=== PATIENT | female | born 1950 | race Caucasian/White ===

== ENCOUNTER 2016-05-31 05:06 | Day surgery (SDC) | payer MEDICAID ==
[2016-05-31] MEDS ORDERED: LIDOCAINE 1% 2 ML INJ ONE (05:55)
[2016-05-31] MEDS ORDERED: ceFAZolin 2 GM/DEXTROSE 100 ML IV ONE (06:30)
[2016-05-31] MEDS ORDERED: MIDAZOLAM 2 MG/2 ML VIAL ONE (07:13)
[2016-05-31] MEDS ORDERED: fentaNYL 100 MCG/2 ML INJ ONE ×2 (07:23→08:29)
[2016-05-31] MEDS ORDERED: PROPOFOL 200 MG/20 ML VIAL ONE ×2 (07:23→08:06)
[2016-05-31] MEDS ORDERED: HYDROmorphONE/DILAUDID 2 MG/ML INJ ONE (07:47)
[2016-05-31] MEDS ORDERED: BUPIVACAINE 0.5% 30 ML SDV ONE (07:47)
[2016-05-31] MEDS ORDERED: LIDOCAINE 2% 5 ML SDV ONE (07:59)
[2016-05-31] MEDS ORDERED: DEXAMETHASONE 4 MG/ML VIAL ONE (07:59)
[2016-05-31] MEDS ORDERED: ROCURONIUM 50 MG/5 ML VIAL ONE (07:59)
[2016-05-31] MEDS ORDERED: SUGAMMADEX SODIUM 200 MG/2 ML VIAL IVP ONE (08:15)
[2016-05-31] MEDS ORDERED: ONDANSETRON 4 MG/2 ML VIAL ONE (08:15)
[2016-05-31] MEDS ORDERED: LABETALOL HCL 5 MG/ML 20 ML MDV ONE (08:34)
--- NOTE | 2016-05-31 08:41 | GOP ---
[f rep st] OPERATIVE REPORT DATE OF OPERATION: 05/31/2016 SURGEON: Ira Barriga MD VENUE COORDINATOR: GARY Jorge ANESTHESIA: General. ANESTHESIOLOGIST: Angel Navas MD PREOPERATIVE DIAGNOSIS: Chronic coccyx wound. POSTOPERATIVE DIAGNOSIS: Chronic coccyx wound. PROCEDURE PERFORMED: Debridement of skin and soft tissue, and complex closure of coccyx wound. FINDINGS: The wound measured 2.6 x 1.4 x 1.8 cm. SPECIMENS: None. INDICATIONS: The patient is a morbidly obese 66-year-old woman who underwent spinal surgery. She then presented with a large wound on her spine and she also developed a deep wound over her coccyx. I recommended numerous times for this to try to be closed, but she was unable to do this earlier. She now presents for closure because she needs hardware replaced in her left hip. DESCRIPTION OF PROCEDURE: The patient was brought into the operating room, placed supine on the table, and general anesthesia was administered. She was then placed in the prone position. Her bottom was prepped with Betadine and draped in the usual sterile fashion. I excised a rim of tissue around the wound. I then cleaned the base of the chronic wound with a scalpel. Hemostasis was achieved. The wound measured 2.6 x 1.4 x 1.8 cm. I created multilayers so that I could close the deeper tissues in 3 layers with 3-0 Vicryl. The tissues came together nicely. I then closed the skin with 2-0 nylon. Allevyn border was placed. She was placed back in the supine position, awakened in the operating room, extubated, transferred to PACU in stable condition. /[id number]/MODL MTDD
[2016-05-31] MEDS ORDERED: HYDROmorphONE/DILAUDID 1 MG/ML SYR ONE (08:43)
[2016-05-31] MEDS ORDERED: OXYCODONE/APAP 5/325 TAB ONE (09:10)
== END 2016-05-31 10:05 ==
LOC: FSGY 05:06
PROVIDERS: ATTEND Surgery
PROC: 0JQ70ZZ Repair Back Subcutaneous Tissue and Fascia, Open Approach (ICD-10-PCS; principal; 2016-05-31 07:15)
DX: L89.159 Pressure ulcer of sacral region, unspecified stage (principal); Z98.1 Arthrodesis status; E66.01 Morbid (severe) obesity due to excess calories
CPT/HCPCS: J0690; J1100; J1170; J2250; J2405; J2704; J3010; J3490

== ENCOUNTER 2016-12-03 06:17 | Inpatient (IN) | payer MEDICAID ==
[2016-12-03] MEDS ORDERED: ceFAZolin 3 GM in D5W 100 ML IV ONE (06:52)
[2016-12-03] MEDS ORDERED: BUPIVACAINE 0.5% 30 ML SDV ONE ×2 (07:08→07:53)
[2016-12-03] MEDS ORDERED: LR 1,000 ML IV ONE (07:21)
[2016-12-03] MEDS ORDERED: LIDOCAINE 1% 2 ML INJ ID PRN (07:21)
--- NOTE | 2016-12-03 07:29 | CPEKG ---
Heart Rate: 73 RR Interval: 822 P-R Interval: 172 QRSD Interval: 88 QT Interval: 396 QTC Interval: 437 P Azalea: 54 QRS Azalea: 24 T Wave Azalea: 25 EKG Severity - NORMAL ECG - EKG Impression: SINUS RHYTHM Electronically Signed By: Nat Gallegos 03-Dec-2016 16:31:54
[2016-12-03] MEDS ORDERED: LIDOCAINE 1% 300 MG/30 ML SDV ONE (07:52)
[2016-12-03] MEDS ORDERED: MIDAZOLAM 2 MG/2 ML VIAL IVP ONE (08:00)
--- NOTE | 2016-12-03 08:00 | PDHPUP ---
History & Physical Update H&P update statement: This history and physical update is based on an assessment of the patient which was completed after admission or registration (within 24 hours), but prior to the surgery/procedure. H&P update: H&P reviewed & patient examined, no change in patient's condition since H&P completed
--- NOTE | 2016-12-03 08:03 | PDANEPAE ---
ANE Past Medical History - Cardiovascular History Hx Hypertension: Yes Hx Arrhythmias: No Hx Chest Pain: No Hx Coronary Artery / Peripheral Vascular Disease: No Hx CHF / Valvular Disease: No Hx Palpitations: No - Pulmonary History Hx COPD: No Hx Asthma/Reactive Airway Disease: No Hx Recent Upper Respiratory Infection: No Hx Oxygen in Use at Home: No Hx Sleep Apnea: No Sleep Apnea Screening Result - Last Documented: Positive Pulmonary History Comment: IRMA TRIGGERS NO DX - Neurologic History Hx Cerebrovascular Accident: No Hx Seizures: No Hx Dementia: No Neurologic History Comment: Sciatica both legs, numbness upper R leg. - Endocrine History Hx Diabetes: No - Renal History Hx Renal Disorders: Yes Renal History Comment: Overactive bladder. - Liver History Hx Hepatic Disorders: No - Neurological & Psychiatric Hx Hx Neurological and Psychiatric Disorders: Yes Neurological / Psychiatric History Comment: Depression, anxiety-med - Cancer History Hx Cancer: Yes Cancer History Comment: Uterine CA-removed. - Congenital Disorder History Hx Congenital Disorders: Yes Congenital History Comment: Bilateral hip dysplagia. - GI History Hx Gastrointestinal Disorders: No - Other Health History Other Health History: Spinal osteoarthritis. Diffuse joint arthritis. - Chronic Pain History Chronic Pain: Yes (WOUND HIP) - Surgical History Prior Surgeries: MULTIPLE I&Ds AND WOUND VACS 2014. TLIF LUMBAR 09/2014. Bilateral hip plastys. Post surg I&D L hip. Total hyst, postop OBS-corrected. Umbilical hernia repair. Kathie torrez. ANE Review of Systems Review of Systems: - Exercise capacity METS (RN): 3 METS ANE Patient History - Allergies Allergies/Adverse Reactions: No Known Allergies Allergy (Verified 02/15/16 15:20) - Home Medications Home Medications: Cholecalciferol Vit D3 [Vitamin D3 (*)] 1,000 units PO DAILY 09/12/14 [Last Taken 12/02/16] Gabapentin [Neurontin 300 MG (*)] 300 mg PO TID 09/12/14 [Last Taken 12/03/16] Lisinopril [Zestril 40 mg (*)] 40 mg PO DAILY 09/12/14 [Last Taken 12/02/16] Calcium Carb W/Vit D 500/200 (*) 1 tab PO DAILY 05/31/16 [Last Taken 12/02/16] Ferrous Sulf 325 MG (*) 325 mg PO DAILY 05/31/16 [Last Taken 12/02/16] Multivitamin (*) 1 tab PO DAILY 05/31/16 [Last Taken 12/02/16] OXYBUTYNIN CHLORIDE ER 10 mg PO DAILY 05/31/16 [Last Taken 12/02/16] Sertraline HCl [Zoloft 100mg (*)] 100 mg PO DAILY 05/31/16 [Last Taken 12/02/16] Vitamin C 250 mg (*) 250 mg PO DAILY 05/31/16 [Last Taken 12/02/16] traMADol [Ultram 50 mg (*)] 50 mg PO Q4 PRN 05/31/16 [Last Taken 12/03/16] Cefdinir BID 12/02/16 [Last Taken 12/02/16] Ms Contin 15 mg TID 12/02/16 [Last Taken 12/03/16] - NPO status NPO Since - Liquids (Date): 12/02/16 NPO Since - Solids (Date): 12/02/16 - Anes Hx Anes Hx: no prior problems - Smoking Hx Smoking Status: Never smoked - Alcohol Use Alcohol Use: Rarely - Family Anes Hx Family Hx Anesthesia Complications: none ANE Labs/Vital Signs - Vital Signs Blood Pressure: 138/59 Heart Rate: 83 Respiratory Rate: 16 O2 Sat (%): 95 Height: 165.1 cm Weight: 124.738 kg ANE Physical Exam - Airway Mallampati Score: Class 1 Mouth exam: normal dental/mouth exam - Pulmonary Pulmonary: no respiratory distress, no rales or rhonchi, clear to auscultation - Cardiovascular Cardiovascular: regular rate and rhythym, no murmur, rub, or gallop - ASA Status ASA Status: III ANE Anesthesia Plan Anesthesia Plan: general endotracheal anesthesia
[2016-12-03] MEDS ORDERED: fentaNYL 100 MCG/2 ML INJ ONE ×2 (08:09→09:45)
[2016-12-03] MEDS ORDERED: PROPOFOL 200 MG/20 ML VIAL ONE (08:09)
[2016-12-03] MEDS ORDERED: DEXAMETHASONE 4 MG/ML VIAL ONE (08:12)
[2016-12-03] MEDS ORDERED: KETOROLAC 30 MG/1 ML SDV ONE (08:12)
[2016-12-03] MEDS ORDERED: SUCCINYLCHOLINE CHLORIDE*ANESTHESIA ONLY*200 MG/10 ML SYR IVP ONE (08:34)
[2016-12-03] MEDS ORDERED: ONDANSETRON 4 MG/2 ML VIAL ONE (08:34)
[2016-12-03] MEDS ORDERED: LIDOCAINE 2% 5 ML SDV ONE (08:35)
[2016-12-03] MEDS ORDERED: epHEDrine SULFATE 10 MG/ML SYR ONE (08:36)
[2016-12-03] MEDS ORDERED: KETAMINE 100 MG/10 ML SYR ONE (09:11)
[2016-12-03] MEDS ORDERED: NALOXONE HCL 0.4 MG/ML INJ IVP PRN (09:39)
[2016-12-03] MEDS ORDERED: LR 500 ML IV PRN (09:39)
[2016-12-03] MEDS ORDERED: METOCLOPRAMIDE 10 MG/2 ML VIAL IVP PRN (09:39)
[2016-12-03] MEDS ORDERED: ONDANSETRON 4 MG/2 ML VIAL IVP PRN ×2 (09:39→09:57)
[2016-12-03] MEDS ORDERED: ACETAMINOPHEN 500 MG TAB PO PRN (09:39)
[2016-12-03] MEDS ORDERED: HYDROmorphONE/DILAUDID 1 MG/ML INJ IVP PRN (09:39)
[2016-12-03] MEDS ORDERED: DEXAMETHASONE 4 MG/ML VIAL IVP PRN (09:39)
[2016-12-03] MEDS ORDERED: PROMETHAZINE HCL 25 MG/ML INJ IVP PRN (09:39)
[2016-12-03] MEDS ORDERED: OXYCODONE/APAP 5/325 TAB PO PRN (09:39)
[2016-12-03] MEDS ORDERED: ENALAPRILAT DIHYDRATE 1.25 MG/ML VIAL IVP PRN (09:39)
[2016-12-03] MEDS ORDERED: LABETALOL HCL 50 MG/10 ML SYR IVP PRN (09:39)
--- NOTE | 2016-12-03 09:44 | POSTANESTH ---
Post Anesthetic Evaluation Cardiovascular Status: Normal, Stable, Similar to Pre-Op Cond Respiratory Status: Normal, Stable, Similar to Pre-op Cond. Level of Consciousness/Mental Status: Can Participate in Eval, Mildly Sleepy, Arousable Pain Control: Adequate, Prn Tx Ordered Nausea/Vomiting Control: Adequate, Prn Tx Ordered Complications Possibly Related to Anesthesia: None Noted
[2016-12-03] MEDS: fentaNYL 100 MCG/2 ML INJ IVP PRN ×2 (09:45→09:57)
--- NOTE | 2016-12-03 09:55 | POSTOPPROG ---
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
[2016-12-03] MEDS ORDERED: ONDANSETRON DISINTEGRATING 4 MG TAB PO PRN (09:57)
[2016-12-03] MEDS ORDERED: diphenhydrAMINE 25 MG CAP PO PRN (09:57)
[2016-12-03] MEDS ORDERED: traMADol 50 MG TAB PO PRN (09:58)
[2016-12-03] MEDS ORDERED: HYDROmorphONE/DILAUDID 1 MG/ML INJ ONE (10:06)
[2016-12-03] MEDS: OXYCODONE/APAP 5/325 TAB PO PRN ×2 (12:31→19:28)
[2016-12-03] MEDS: GABAPENTIN 300 MG CAP PO SCH ×2 (16:07→20:48)
[2016-12-03] MEDS: CEFDINIR 300 MG CAP PO SCH (18:24)
[2016-12-03] MEDS: ASPIRIN 81 MG CHEWABLE TAB PO SCH (20:48)
[2016-12-04] MEDS ORDERED: SERTRALINE HCL 100 MG TAB PO SCH (09:00)
[2016-12-04] MEDS ORDERED: VIT D PO SCH (09:00)
[2016-12-04] MEDS ORDERED: CHOLECALCIFEROL VIT D3 1,000 UNITS TAB PO SCH (09:00)
[2016-12-04] MEDS ORDERED: OXYBUTYNIN CHLORIDE 10 MG PO SCH (09:00)
[2016-12-04] MEDS ORDERED: FERROUS SULFATE 325 MG TAB PO SCH (09:00)
[2016-12-04] MEDS ORDERED: CALCIUM CARB W/VIT D 500 MG TAB PO SCH (09:00)
[2016-12-04] MEDS ORDERED: CALCIUM CARB PO SCH (09:00)
[2016-12-04] MEDS ORDERED: FERROUS SULF PO SCH (09:00)
[2016-12-04] MEDS ORDERED: OXYBUTYNIN 5 MG EXT REL TAB PO SCH (09:00)
[2016-12-04] MEDS: CEFDINIR 300 MG CAP PO SCH ×2 (10:37→17:17)
[2016-12-04] MEDS: LISINOPRIL 40 MG TAB PO SCH (10:38)
[2016-12-04] MEDS: GABAPENTIN 300 MG CAP PO SCH ×3 (10:39→20:55)
[2016-12-04] MEDS: OXYCODONE/APAP 5/325 TAB PO PRN ×3 (10:43→20:15)
[2016-12-04] MEDS ORDERED: FLU VACC QS 2017-18 (3YR+)/PF 0.5 ML SYR (FLUARIX QUAD) IM ONE (10:52)
--- NOTE | 2016-12-04 11:28 | SOAPPROG ---
SOAP Progress Note Assessment/Plan: Assessment: 66yo F POD#1 s/p debridement skin/soft tissue/muscle/bone of R buttock wound Pain controlled Wound vac to suction Offloading when in bed Regular diet PT Sanguinous drainage in vac, slowing down. Recheck H/H in am Dispo: Continue inpatient. Will need home care for wound care/dressing changes. Seen c Dr. Barriga S: Had attempted to get out of bed yet. Visit she did not sleep the days leading up to surgery. Pain is controlled. No new complaints overnight. O: laying in bed, comfortable, NAD No increased WOB R buttock wound vac to suction. No surrounding erythema or induration. Minimal thin sanguinous drainage in canister. 12/04/16 17:58 Objective: Vital Signs Temp Pulse Resp BP Pulse Ox 36.7 C 61 12 142/61 H 94 12/04/16 08:00 12/04/16 08:00 12/04/16 08:00 12/04/16 10:38 12/04/16 08:00 Microbiology 12/03/16 08:53 Gram Stain - Final Buttock - Tissue 12/03/16 12/04/16 12/05/16 05:59 05:59 05:59 Intake Total 860 Output Total 2475 Balance -1615 ICD10 Worksheet Patient Problems: Problems Problem Status Onset Lumbar stenosis Acute MRSA (methicillin resistant Staphylococcus aureus) Acute 10/31/14
[2016-12-04] MEDS ORDERED: NS 1,000 ML IV SCH (15:00)
[2016-12-04 15:31] LABS: ALBUMIN 2.5 g/dL (3.5-5.0)
[2016-12-04] MEDS: OXYBUTYNIN 5 MG EXT REL TAB PO SCH (16:26)
[2016-12-04] MEDS: CALCIUM CARB W/VIT D 500 MG TAB PO SCH (16:27)
[2016-12-04] MEDS: CHOLECALCIFEROL VIT D3 1,000 UNITS TAB PO SCH (16:27)
[2016-12-04] MEDS: SERTRALINE HCL 100 MG TAB PO SCH (16:27)
[2016-12-04] MEDS: FERROUS SULFATE 325 MG TAB PO SCH (16:27)
--- NOTE | 2016-12-04 17:52 | ASMTCMCOM ---
CM Note CM Note Notes: Spoke w/MD, pt refuses snf. Will dc home w/wound vac, application submitted to [facility]. CM met w/pt, is [facility] with [facility] and [phone]. Pt also states would like to get hospital be at home, CM to consult . Date Signed: 12/04/2016 05:51 PM Electronically Signed By:Yani Jay RN
[2016-12-04] MEDS: ASPIRIN 81 MG CHEWABLE TAB PO SCH (20:55)
[2016-12-05] MEDS: OXYCODONE/APAP 5/325 TAB PO PRN ×5 (04:13→22:27)
[2016-12-05 05:29] LABS: % IMMATURE GRANULYOCYTES 0.4 % (0.0-1.1); ABSOLUTE IMMATURE GRANULOCYTES 0.04 10^3/uL (0.00-0.10); ADD DIFF? NO; ADD MORPH? NO; ADD SCAN? NO; ATYPICAL LYMPHOCYTE FLAG 30 (0-99); FRAGMENT RBC FLAG 20 (0-99); HEMATOCRIT 32.1 % (38.0-47.0); HEMOGLOBIN 10.1 g/dL (12.6-16.3); LEFT SHIFT FLG 0 (0-99); LIPEMIA HEMOLYSIS FLAG 80 (0-99); MEAN CELL HEMOGLOBIN 28.1 pg (27.9-34.1); MEAN CELL HEMOGLOBIN CONCENTR. 31.5 g/dL (32.4-36.7); MEAN CELL VOLUME 89.2 fL (81.5-99.8); MEAN PLATELET VOLUME 10.6 fL (8.7-11.7); PLATELET CLUMPS FLAG 0 (0-99); PLATELET COUNT 303 10^3/uL (150-400); RED CELL DISTRIBUTION WIDTH 15.9 % (11.5-15.2)
[2016-12-05] MEDS: GABAPENTIN 300 MG CAP PO SCH ×3 (08:47→22:27)
[2016-12-05] MEDS: LISINOPRIL 40 MG TAB PO SCH (08:47)
[2016-12-05] MEDS: CEFDINIR 300 MG CAP PO SCH ×2 (08:47→18:26)
--- NOTE | 2016-12-05 10:54 | SOAPPROG ---
SOAP Progress Note Assessment/Plan: Assessment/Plan: 66-year-old female postoperative day 2 status post right buttock incision and drainage Patient continues to do well, her pain is well controlled. She has been afebrile. VAC continues to hold suction without any apparent issues. Still awaiting home VAC arrival. We will plan for home with VAC and home health when appropriate. 12/05/16 10:53 Subjective: Doing well, enjoying her coffee has no concerns Objective: Vital Signs Temp Pulse Resp BP Pulse Ox 36.5 C 58 L 16 145/83 H 97 12/05/16 07:32 12/05/16 07:32 12/05/16 07:32 12/05/16 07:32 12/05/16 07:32 Microbiology 12/03/16 08:53 Gram Stain - Final Buttock - Tissue Laboratory Results 12/05/16 05:14 12/04/16 12/05/16 12/06/16 05:59 05:59 05:59 Intake Total 860 660 200 Output Total 1875 3648 550 [facility] -1615 -2390 -350 ICD10 Worksheet Patient Problems: Problems Problem Status Onset Lumbar stenosis Acute MRSA (methicillin resistant Staphylococcus aureus) Acute 10/31/14
[2016-12-05] MEDS: HYDROmorphONE/DILAUDID 1 MG/ML INJ IVP PRN (15:43)
[2016-12-05] MEDS: CALCIUM CARB W/VIT D 500 MG TAB PO SCH (16:20)
[2016-12-05] MEDS: CHOLECALCIFEROL VIT D3 1,000 UNITS TAB PO SCH (16:21)
[2016-12-05] MEDS: OXYBUTYNIN 5 MG EXT REL TAB PO SCH (16:21)
[2016-12-05] MEDS: SERTRALINE HCL 100 MG TAB PO SCH (16:22)
[2016-12-05] MEDS: FERROUS SULFATE 325 MG TAB PO SCH (16:22)
--- NOTE | 2016-12-05 16:51 | ASMTCMCOM ---
CM Note CM Note Notes: Wound vac delivered to pt's room, form signed and faxed back to [facility]. Pt unable to dc home today d/t pt's non skilled homecare through [facility] unable to arrange for caregiver to be there tonight. Pt will dc home tomorrow am, CM to arrange wc transport with [facility] (pt has medicaid). Lilian at [facility] and Sparkle at [facility] notified as well as Yoselyn at [facility]. Date Signed: 12/05/2016 04:51 PM Electronically Signed By:Yani Jay RN
[2016-12-05] MEDS: ASPIRIN 81 MG CHEWABLE TAB PO SCH (22:27)
[2016-12-06] MEDS: OXYCODONE/APAP 5/325 TAB PO PRN ×2 (05:32→09:17)
--- NOTE | 2016-12-06 07:26 | PDIAF ---
- Diagnosis Diagnosis: sacral decub Code Status: Full Code - Medication Management Discharge Medications: Medications to Continue on Transfer Cholecalciferol Vit D3 [Vitamin D3 (*)] 1,000 units PO DAILY 09/12/14 [Last Taken 12/02/16] Gabapentin [Neurontin 300 MG (*)] 300 mg PO TID 09/12/14 [Last Taken 12/03/16 09 :00] Lisinopril [Zestril 40 mg (*)] 40 mg PO DAILY 09/12/14 [Last Taken 12/02/16] Calcium Carbonate [Oyster Shell Calcium 500 mg (*)] 500 mg PO DAILY 05/31/16 [ Last Taken 12/02/16] Ferrous Sulfate [Ferrous Sulf 325 MG (*)] 325 mg PO DAILY 05/31/16 [Last Taken 12/02/16] Multivitamins [Multivitamin (*)] 1 each PO DAILY 05/31/16 [Last Taken 12/02/16] Oxybutynin Chloride [Ditropan Xl] 10 mg PO DAILY18 05/31/16 [Last Taken 12/02/16 ] Sertraline HCl [Zoloft 100mg (*)] 100 mg PO DAILY@14 05/31/16 [Last Taken ] traMADol [Ultram 50 mg (*)] 50 mg PO BID PRN 05/31/16 [Last Taken 12/03/16] Cefdinir [Omnicef (*)] 300 mg PO BIDMEAL 12/02/16 [Last Taken 12/02/16 18:00] morphINE SR [Ms Contin/Oramorph 15 mg (*)] 15 mg PO TID 12/02/16 [Last Taken 09:00] Aspirin [Aspirin 81mg (*)] 81 mg PO HS 12/03/16 [Last Taken 12/02/16] Herbals/Supplements -Info Only 1 ea PO DAILY 12/03/16 [Last Taken Unknown] oxyCODONE/APAP 5/325 [Percocet 5/325 (*)] 2 tab PO Q4 PRN #30 tab 12/06/16 [ Last Taken Unknown] Discharge Medications: Refer to the Discharge Home Medication list for PRN reason. - Orders Services needed: Home Care, Registered Nurse, Physical Therapy, Occupational Therapy Home Care Face to Face: I certify that this patient was under my care and that I had the required [id number] encounter meeting the encounter requirements on the discharge day. My findings support the fact that the patient is homebound as defined in Home Care Face to Face Continued: CMS Chapter 7 Medicare Benefits Manual 30.1.1 , The condition of the patient is such that there exists a normal inability to leave home and consequently, leaving home would require a considerable and taxing effort. Diet Recommendation: no restrictions on diet Diet Texture: Regular Texture Diet - Follow Up Care Current Providers and Referrals: KACI CANELA [Primary Care Provider] - Ira Barriga MD [Medical Doctor] - follow up in 1 week
[2016-12-06] MEDS: HYDROmorphONE/DILAUDID 1 MG/ML INJ IVP PRN (08:19)
--- NOTE | 2016-12-06 08:51 | WOCRNPDOC ---
WOCRKristian Advanced Assessment Note - Skin Integrity Problem, Advanced Assess Right Buttock Surgical Wound/Incision Dressing Type: Black Vac Foam (2 pieces of black foam removed), Wound Vac Exudate Amount: Minimal Exudate Color: Red Exudate Characteristic(s): Bloody Integumentary Issue Intervention: Dressing Changed Jazmin Wound Tissue: Intact Wound Bed Color: Red, Yellow Wound Bed Constitution: Granulation Tissue, Tunneling, Undermining, Muscle, Subcutaneous Fat, Adhered Slough Site Odor: Moderate Site Measurement - Head-to-Toe Length X Width X Depth (cm): [id number] Pressure Injury Stage: Stage 4 Pressure Injury Present on Admit: Yes Skin Integrity Problem Comment: Vac dressing change at the bedside w/ ACACIA Jorge. Large surgical wound over R posterior sacroiliac spine w/ mix of adhered slough, granulation tissue, subcutaneous fat, w/ palpable bone. Tunneling 4cm from 11-12 o'clock, and 8cm at 1 o'clock. Site re-packed w/ 2 pieces of black foam, and dressing bridged over R hip . Patient will dc today and [facility]. winding lathe operator Aaliyah Sykes and Student Tayler lewis.
[2016-12-06 08:55] VITALS: BP 147/67; PULSE 65; RESP 18; TEMP 98.1; O2SAT 95
--- NOTE | 2016-12-06 09:02 | SOAPPROG ---
SOAP Progress Note Assessment/Plan: Assessment: 66yo F POD#3 s/p debridement skin/soft tissue/muscle/bone of R buttock wound - stage IV pressure ulcer Pain controlled Wound vac changed this morning Offloading when in bed Regular diet PT Sanguinous drainage stopped. Dispo home today with homecare for dressing changes. F/u 1 week for wound check/ dressing change S: Pain is controlled. No new complaints overnight. O: laying in bed, comfortable, NAD No increased WOB Wound vac changed - healthy granulation tissue in the base of the wound, small area of slough. Tunnelling 1:00 appx 8cm. Dressing reapplied. No active bleeding Objective: Vital Signs Temp Pulse Resp BP Pulse Ox 36.7 C 65 18 147/67 H 95 12/06/16 08:53 12/06/16 08:53 12/06/16 08:53 12/06/16 08:53 12/06/16 08:53 Microbiology 12/03/16 08:53 Gram Stain - Final Buttock - Tissue Laboratory Results 12/05/16 05:14 12/05/16 12/06/16 12/07/16 05:59 05:59 05:59 Intake Total 660 1200 Output Total 9375 7900 Balance -2390 -1250 ICD10 Worksheet Patient Problems: Problems Problem Status Onset Lumbar stenosis Acute MRSA (methicillin resistant Staphylococcus aureus) Acute 10/31/14
[2016-12-06] MEDS: LISINOPRIL 40 MG TAB PO SCH (09:05)
[2016-12-06] MEDS: GABAPENTIN 300 MG CAP PO SCH (09:05)
[2016-12-06] MEDS: CEFDINIR 300 MG CAP PO SCH (09:18)
--- NOTE | 2016-12-06 09:57 | ASMTCMCOM ---
CM Note CM Note Notes: D/w PA, final orders faxed. Lilian at [facility] and Sparkle at [facility] notified. [facility] will have caregiver at pt's home at noon. Pt will be picked up by NEHEMIAH espinosa at 11am. Yoselyn at [facility] notified. Date Signed: 12/06/2016 09:56 AM Electronically Signed By:Yani Jay RN
--- NOTE | 2016-12-06 12:36 | GDS ---
[f rep st] DISCHARGE SUMMARY ADMITTING DIAGNOSIS: Right buttock stage IV pressure ulcer. SECONDARY DIAGNOSES: Morbid obesity, hypertension, depression, chronic back pain, history of uterine cancer, spinal stenosis with radiculopathy. REASON FOR ADMISSION: The patient is a 66-year-old woman, who developed a pressure ulcer of her righ t posterior superior iliac spine. She underwent an office debridement, but the wound appeared to be much more extensive than she could tolerate without anesthesia. She was admitted for surgical interv ention, pain control, and observation. HOSPITAL COURSE: She was taken to the operating room by Dr. Ira Barriga on 12/03/2016, for debrideme nt of skin, soft tissue, muscle and bone of the right PSIS. At the time of surgery, the wound measur ed 4.5 x 14 x 6 cm. There is undermining in the 9 o'clock position, measuring 6 cm. Undermining in the 12 o'clock position, measuring 5 cm. A wound VAC was placed. Through her hospital stay, she was on a [place] bed and performed side to side offloading when in bed. She worked with physical therapist aide apy and occupational therapy. By postoperative day #3, her pain was well controlled. She was ambula ting and was ready for discharge home. CONDITION: She is being discharged home with home care, in stable condition. DISCHARGE MEDICATIONS: She was provided a prescription for Percocet. Instructed to resume home medi cations. Please see EMR for further detail. DISCHARGE INSTRUCTIONS AND FOLLOWUP: [facility]. She will have a wound VAC change twice weekly. She understands to call our office with any worsening sym ptoms, questions, or concerns. She will continue to offload side to side. /[id number]/MODL
--- NOTE | 2016-12-06 18:11 | ASDISCHSUM ---
Discharge Information Plan Status:Home with Home Health Medically Cleared to Leave: Discharge Date:12/06/2016 11:02 AM CM D/C Disposition:Home Health Service ADT D/C Disposition:Home, Routine, Self-Care Projected Discharge Date:12/06/2016 11:00 AM Transportation at D/C:Medicaid Transportation Discharge Delay Reason: Follow-Up Date:12/06/2016 11:00 AM Discharge Slot: Final Diagnosis: Placement Information Referral Type:*Home Health Care Services Referral ID:[id number] Provider Name:[facility] [place] Address 1:[address] Phone Number: Address 2: Fax Number: City:[place] Selection Factors: State:[place] Patient Contact Information Contact Name:FAINA Relationship:Daughter Address: Work Phone: City: [facility] Phone: [facility] Code: Email: Financial Information Financial Class: Primary Plan Desc:[facility] Primary Plan Number:[id number] Secondary Plan Desc: Secondary Plan Number: Assessment Information [facility] CM Progress Note CM Note CM Note Notes: Spoke w/, pt refuses snf. Will dc home w/wound vac, application submitted to [facility]. CM met w/pt, is current with [facility] and [id number]-[phone]. Pt also states would like to get hospital be at home, CM to consult . Date Signed: 12/04/2016 05:51 PM Electronically Signed By:Yani Jay RN [facility] CM Progress Note CM Note CM Note Notes: Wound vac delivered to pt's room, form signed and faxed back to [employer]. Pt unable to dc home today d/t pt's non skilled homecare through [facility] unable to arrange for caregiver to be there tonight. Pt will dc home tomorrow am, CM to arrange wc transport with [facility] (pt has medicaid). Lilian at [facility] and Sparkle at [facility] notified as well as Yoselyn at [facility]. Date Signed: 12/05/2016 04:51 PM Electronically Signed By:Yani Jay RN [facility] CM Progress Note CM Note CM Note Notes: D/w PA, final orders faxed. Lilian at [facility] and Sparkle at [facility] notified. [facility] will have caregiver at pt's home at noon. Pt will be picked up by [facility] wc at 11am. Yoselyn at [facility] notified. Date Signed: 12/06/2016 09:56 AM Electronically Signed By:Yani Jay RN Intervention Information Intervention Type:*Incorrect Registration Date of Service:12/03/2016 02:30 PM Patient Type:Inpatient Staff Member:RICHIE Abdullahi Susan Hours: Discipline: Severity: Comment:
--- NOTE | 2016-12-12 11:29 | GOP ---
[f rep st] OPERATIVE REPORT DATE OF OPERATION: 12/03/2016 SURGEON: Ira Barriga MD FIRE EQUIPMENT INSPECTOR: GARY Jorge. ANESTHESIA: General. ANESTHESIOLOGIST: Angel Navas MD. PREOPERATIVE DIAGNOSIS: Left buttock pressure ulcer, unstageable. POSTOPERATIVE DIAGNOSIS: Stage IV pressure ulcer of left posterior superior iliac spine. PROCEDURE PERFORMED: Debridement skin soft tissue, muscle 70 sq cm FINDINGS: Extremely large buttock ulcer. SPECIMENS: Microbiology and pathology. ESTIMATED BLOOD LOSS: Minimal. INDICATIONS: The patient is a 66-year-old woman, who presented with an unstageable pressure ulcer. I [facility] , and it became quite painful and was much larger than expected. DESCRIPTION OF PROCEDURE: The patient was brought into the operating room, and general anesthesia was administered. She was then placed prone on the table. Her buttock was prepped and draped in the usual sterile fashion. I used electrocautery and debrided the skin, soft tissue, including some muscle. I was able to palpate her posterior superior iliac spine, and there was a small layer that was overlying this. The wound was irrigated. The wound measured 4.5 x 14 x 6 cm and undermined 6 cm at the 12 o'clock position 5 cm. A wound VAC was placed. She was placed back into the supine position, awakened in the operating room, extubated, transferred to PACU in stable condition. /[id number]/MODL MTDD
== END 2016-12-06 11:02 | disposition home health service (06) | DRG 981 ==
LOC: F3E 06:17 → INTOOBSV 06:17 → F3E 11:15 → OBSVTOIN 12-04 15:44
PROVIDERS: ADMIT Surgery; ATTEND Surgery
DX: I96 Gangrene, not elsewhere classified (principal); L89.314 Pressure ulcer of right buttock, stage 4; E66.01 Morbid (severe) obesity due to excess calories; Z68.42 Body mass index [BMI] 45.0-49.9, adult; M48.06 Spinal stenosis, lumbar region; M54.16 Radiculopathy, lumbar region; I10 Essential (primary) hypertension; F32.9 Major depressive disorder, single episode, unspecified; Z98.1 Arthrodesis status; Z85.42 Personal history of malignant neoplasm of other parts of uterus; Z23 Encounter for immunization
CPT/HCPCS: 97116-GP; 97162-GP; G0008; G0378; J0330; J0690; J1100; J1170; J1885; J2250; J2405; J2704; J3010